=== PATIENT | female | born 1970 | race Two or more races ===

== ENCOUNTER → 2020-11-24 | Day surgery (SDC) | payer OTHER ==
[~2020-11-24] MED LIST: AMITRIPTYLINE H10 MG PO
[2020-11-24 11:05] VITALS: BP 128/76
== END | disposition home or self-care (01) ==
LOC: OR 08:31
PROVIDERS: ATTEND Internal Medicine Gastroenterology
DX: K29.70 Gastritis, unspecified, without bleeding (principal); K20.90 Esophagitis, unspecified without bleeding; K31.84 Gastroparesis; K21.9 Gastro-esophageal reflux disease without esophagitis; K59.00 Constipation, unspecified; K64.8 Other hemorrhoids; Z78.0 Asymptomatic menopausal state; Z88.6 Allergy status to analgesic agent; Z01.810 Encounter for preprocedural cardiovascular examination; Z01.812 Encounter for preprocedural laboratory examination; Z20.822 Contact with and (suspected) exposure to COVID-19
CPT/HCPCS: 43239; 43450; 45378; 81025; 93005; U0002